=== PATIENT | male | born 1980 | race Caucasian/White ===

== ENCOUNTER 2018-08-15 23:21 | Inpatient (IN) ==
[2018-08-15] MEDS ORDERED: Acetaminophen 325 MG Tablet PO ONE (23:47)
--- NOTE | 2018-08-16 00:16 | XR ---
EXAM DATE: 08/16/2018 12:12 AM EST AGE/SEX: 38 years / Male INDICATIONS: Fever for one week. CLINICAL DATA: This is the patient's initial encounter. Patient reports that signs and symptoms have been present for 1 day and indicates a pain score of 0/10. MEDICAL/SURGICAL HISTORY: None. None. COMPARISON: No prior exams available for comparison. FINDINGS: A single AP view of the chest demonstrates the lungs to be symmetrically aerated without evidence of mass, infiltrate or effusion. The cardiomediastinal contours are unremarkable. Osseous structures a re intact. CONCLUSION: 1. Negative portable chest. Electronically signed by: Sebastien Rodriguez MD Board Certified Radiologist 08/16/2018 12:14 AM LINNEA T
[2018-08-16] MEDS: Sod Chloride 0.9% Inj 1,000 ML IV.SIG SCH ×4 (01:00→12:32)
[2018-08-16 01:09] LABS: Baso % (Auto) 0.2 % (0.0-2.0); Lymph # (Auto) 1.5 th/mm3 (1.0-4.8); Lymph % (Auto) 20.2 % (9.0-44.0); Mean Corpuscular HGB Conc 33.6 % (32.0-36.0); Mean Corpuscular Hemoglobin 26.2 pg (27.0-34.0); Mean Corpuscular Volume 77.9 fL (80.0-100.0); Mean Platelet Volume 8.3 fL (7.0-11.0); Mono # (Auto) 0.5 th/mm3 (0.0-0.9); Mono % (Auto) 7.1 % (0.0-8.0); Neut # (Auto) 5.4 th/mm3 (1.8-7.7); Neut % (Auto) 72.5 % (16.0-70.0); Platelet Count 109 th/mm3 (150-450); Red Blood Count 2.32 mil/mm3 (4.50-5.90); Red Cell Distribution Width 18.8 % (11.6-17.2); White Blood Count 7.4 th/mm3 (4.0-11.0)
[2018-08-16 01:12] LABS: Hematocrit 18.1 % (39.0-51.0); Hemoglobin 6.1 gm/dL (13.0-17.0)
[2018-08-16] MEDS ORDERED: Vancomycin Inj 1,000 MG in Sodium Chlor 0.9% Inj 250 ML IV.SIG ONE (01:17)
--- NOTE | 2018-08-16 01:23 | ED ---
HPI General Chief Complaint: Respiratory Symptoms Stated Complaint: vomiting Time Seen by Provider: 08/15/18 23:47 Source: patient Mode of arrival: ambulatory Limitations: no limitations History of Present Illness HPI Narrative: Patient with fever and cough with history of pneumonia reportedly from MRSA in the past when he was treated in [place] but signed out AGAINST MEDICAL ADVICE prior to completion of treatment. Patient with recent evaluation June 2018 for methadone abuse. Patient presents not feeling well over the past several days with cough congestion also mentions generalized abdominal pain no report of diarrhea no report of hematemesis coffee-ground emesis melena or hematochezia. Patient denies any substance use times 2 weeks patient states he used to inject heroin. MD complaint: Reports fever and weakness Onset (ago): day(s) Temperature Source: subjective Associated symptoms: Reports chills, myalgias, rhinorrhea, nasal congestion, cough, abdominal pain, nausea, vomiting and weight loss; Denies rigors, headache , sore throat, stiff neck, chest pain, shortness of breath, diarrhea, dysuria, rash, confusion and night sweats Relieving factors: nothing Exacerbating factors: nothing Treatments prior to arrival fever: Reports none Related Data Home Medications Medication Instructions Recorded Confirmed No Known Home Medications 07/21/18 08/15/18 Allergies Allergy/AdvReac Type Severity Reaction Status Date / Time No Known Allergies Allergy Verified 07/21/18 17:17 Review of Systems ROS: all other systems reviewed are negative PMFSH Medical History Medical History Hepatitis C (Acute) Surgical History Surgical History History of appendectomy (Acute) Social History Social History Substance History: Past History Smoking Status: Current every day smoker Tobacco Type: Cigarettes and Smokeless Tobacco How Often Do You Have a Drink Containing Alcohol: Never Recent Travel in [place] within the Last 8 Weeks: No Recent Out of Country Travel within the Last 8 Weeks: No Immunization History Tetanus Immunization: <5 Years Tetanus Immunization Year if Known: 2018 Exam Narrative Exam Narrative: GENERAL: Well-nourished, well-developed patient. Mildly ill- appearing male with fever 100.6 F mild increased respiratory rate of 22 increased heart rate of 118 blood pressure 104/54 SKIN: Focused skin assessment warm/dry. HEAD: Normocephalic. EYES: No scleral icterus. No injection or drainage. NECK: Supple, trachea midline. No JVD or lymphadenopathy. CARDIOVASCULAR: Increased regular rate and rhythm with 2/6 holosystolic murmur, no gallops or rubs. RESPIRATORY: Breath sounds equal bilaterally. No accessory muscle use. GASTROINTESTINAL: Abdomen soft, diffusely tender to palpation without guarding or rebound, nondistended. MUSCULOSKELETAL: No cyanosis, or edema. BACK: Nontender without obvious deformity. No CVA tenderness. Procedures Hemaprompt Stool Procedural Steps Taken: specimen placed in appropriate test area, developer placed on specimen and control areas and controls appropriately positive and negative Hemaprompt Stool Result: negative Course Initial Documented Vital Signs Temperature 100.6 F H 08/15/18 23:22 Pulse Rate 130 H 08/15/18 23:22 Respiratory Rate 18 08/15/18 23:22 Blood Pressure 103/54 L 08/15/18 23:22 Pulse Oximetry 98 08/15/18 23:22 Last Documented Vital Signs Temperature 100.6 F H 08/15/18 23:37 Pulse Rate 118 H 08/15/18 23:37 Respiratory Rate 22 08/15/18 23:37 Blood Pressure 104/54 L 08/15/18 23:37 Pulse Oximetry 100 08/15/18 23:37 Medical Decision Making MDM Narrative Medical decision making narrative: Patient with fever and cough with history of pneumonia reportedly from MRSA in the past when he was treated in [place] but signed out AGAINST MEDICAL ADVICE prior to completion of treatment. Patient with recent evaluation June 2018 for methadone abuse. Patient presents not feeling well over the past several days with cough congestion also mentions generalized abdominal pain no report of diarrhea no report of hematemesis coffee -ground emesis melena or hematochezia. Patient denies any substance use times 2 weeks patient states he used to inject heroin. IV access obtained specimens collected and sent for resulting; blood cultures obtained lactic acid obtained and presumptive IV antibiotics administered for sepsis possibly due to pneumonia endocarditis or intra-abdominal/pelvic source no obvious skin lesion or abscess findings or joint swelling patient has multiple scars consistent with IV drug abuse. Patient identified to have marked anemia hemoglobin of 6.1; rectal exam performed Hemoccult negative; patient ordered to receive 2 units packed cells with one on hold. Patient identified to have hyponatremia of 126 acute renal failure insufficiency BUN 51/ Cr 3.12 CT abdomen pelvis, urinalysis and urine drug screen pending Medical Screen Exam Complete: Yes Emergency Medical Condition: Yes Differential Diagnosis Differential Diagnosis: Fever, sepsis, pneumonia, endocarditis, cholecystitis, appendicitis, diverticulitis, cirrhosis, hepatitis, pancreatitis Medical Records Medical records reviewed: Yes I reviewed the patient's medical records. Lab Data Result diagrams: 08/16/18 00:40 08/16/18 00:40 Lab Results 08/16/18 08/16/18 08/16/18 Range/Units 00:40 00:40 00:40 WBC 7.4 (4.0-11.0) th/mm3 RBC 2.32 L (4.50-5.90) mil/mm3 Hgb 6.1 L* (13.0-17.0) gm/dL Hct 18.1 L* (39.0-51.0) % MCV 77.9 L (80.0-100.0) fL MCH 26.2 L (27.0-34.0) pg MCHC 33.6 (32.0-36.0) % RDW 18.8 H (11.6-17.2) % Plt Count 109 L (150-450) th/mm3 MPV 8.3 (7.0-11.0) fL Prelim Diff (Auto) Slide review pending Neut % (Auto) 72.5 H (16.0-70.0) % Lymph % (Auto) 20.2 (9.0-44.0) % Newton % (Auto) 7.1 (0.0-8.0) % Eos % (Auto) 0.0 (0.0-4.0) % Baso % (Auto) 0.2 (0.0-2.0) % Neut # (Auto) 5.4 (1.8-7.7) th/mm3 Lymph # (Auto) 1.5 (1.0-4.8) th/mm3 Newton # (Auto) 0.5 (0.0-0.9) th/mm3 Eos # (Auto) 0.0 (0.0-0.4) th/mm3 Baso # (Auto) 0.0 (0.0-0.2) th/mm3 WBC Differential . Diff Scan Auto diff confirmed Differential Comment . Platelet Estimate Normal (Normal) Platelet Morphology Normal (Normal) PT (9.8-11.6) sec INR Ratio APTT (23.4-31.7) sec Sodium 126 L (136-145) meq/L Potassium 4.4 (3.5-5.1) meq/L Chloride 95 L (98-107) meq/L Carbon Dioxide 21.1 (21.0-32.0) meq/L Anion Gap 10 (5-15) meq/L BUN 51 H (7-18) mg/dL Creatinine 3.21 H (0.60-1.30) mg/dL Estimated GFR 22 L (>89) mL/min Random Glucose 116 H (74-106) mg/dL Lactic Acid 1.3 (0.4-2.0) mmol/L Calcium 7.4 L* (8.5-10.1) mg/dL Calcium Adj for Albumin 8.6 (8.5-10.1) mg/dL Magnesium 1.7 (1.5-2.5) mg/dL Total Bilirubin 0.4 (0.2-1.0) mg/dL AST 50 H (15-37) U/L ALT 21 (12-78) U/L Alkaline Phosphatase 82 (45-117) U/L Troponin I Less than 0.02 L (0.02-0.05) ng/mL Total Protein 7.9 (6.4-8.2) g/dL Albumin 2.5 L (3.4-5.0) g/dL Lipase (73-393) U/L Blood Type Blood Type Recheck Antibody Screen MTS Gel Crossmatch 08/16/18 08/16/18 08/16/18 Range/Units 00:40 01:00 01:50 WBC (4.0-11.0) th/mm3 RBC (4.50-5.90) mil/mm3 Hgb (13.0-17.0) gm/dL Hct (39.0-51.0) % MCV (80.0-100.0) fL MCH (27.0-34.0) pg MCHC (32.0-36.0) % RDW (11.6-17.2) % Plt Count (150-450) th/mm3 MPV (7.0-11.0) fL Prelim Diff (Auto) Neut % (Auto) (16.0-70.0) % Lymph % (Auto) (9.0-44.0) % Newton % (Auto) (0.0-8.0) % Eos % (Auto) (0.0-4.0) % Baso % (Auto) (0.0-2.0) % Neut # (Auto) (1.8-7.7) th/mm3 Lymph # (Auto) (1.0-4.8) th/mm3 Newton # (Auto) (0.0-0.9) th/mm3 Eos # (Auto) (0.0-0.4) th/mm3 Baso # (Auto) (0.0-0.2) th/mm3 WBC Differential Diff Scan Differential Comment Platelet Estimate (Normal) Platelet Morphology (Normal) PT 11.2 (9.8-11.6) sec INR 1.1 Ratio APTT 26.9 (23.4-31.7) sec Sodium (136-145) meq/L Potassium (3.5-5.1) meq/L Chloride (98-107) meq/L Carbon Dioxide (21.0-32.0) meq/L Anion Gap (5-15) meq/L BUN (7-18) mg/dL Creatinine (0.60-1.30) mg/dL Estimated GFR (>89) mL/min Random Glucose (74-106) mg/dL Lactic Acid (0.4-2.0) mmol/L Calcium (8.5-10.1) mg/dL Calcium Adj for Albumin (8.5-10.1) mg/dL Magnesium (1.5-2.5) mg/dL Total Bilirubin (0.2-1.0) mg/dL AST (15-37) U/L ALT (12-78) U/L Alkaline Phosphatase (45-117) U/L Troponin I (0.02-0.05) ng/mL Total Protein (6.4-8.2) g/dL Albumin (3.4-5.0) g/dL Lipase 44 L (73-393) U/L Blood Type O Negative Blood Type Recheck Required Antibody Screen Negative MTS Gel Crossmatch See Detail Imaging Data Radiologist's impression: Chest X-Ray 08/15/18 23:47 CONCLUSION: 1. Negative portable chest. Discharge Plan Discharge Disposition Patient Disposition: ED Admit(ED Internal Use Only) Discharge Condition Condition: Fair Discharge Details Diagnosis: Sepsis, Endocarditis, Anemia, Intravenous drug abuse, Thrombocytopenia Physicians Team ED Provider: Balbina Jolly Primary Care Provider: Primary Care Katie Alvarado Rxs /Orders / Referrals /Forms Prescriptions: No Action No Known Home Medications RF: 0 Status ED Status: With Doctor
[2018-08-16 01:30] LABS: Alanine Aminotransferase 21 U/L (12-78); Albumin 2.5 g/dL (3.4-5.0); Alkaline Phosphatase 82 U/L (45-117); Anion Gap 10 meq/L (5-15); Aspartate Aminotransferase 50 U/L (15-37); Blood Urea Nitrogen 51 mg/dL (7-18); Calcium 7.4 mg/dL (8.5-10.1); Carbon Dioxide 21.1 meq/L (21.0-32.0); Chloride 95 meq/L (98-107); Glomerular Filtration Rate 22 mL/min (>89); Glucose,Random 116 mg/dL (74-106); Magnesium 1.7 mg/dL (1.5-2.5); Potassium 4.4 meq/L (3.5-5.1); Sodium 126 meq/L (136-145); Total Protein 7.9 g/dL (6.4-8.2)
[2018-08-16] MEDS ORDERED: Piperacil/Tazo 4.5 GM Premix 4.5 GM/100 ML BAG IV.SIG SCH (01:30)
[2018-08-16 01:49] LABS: Platelet Estimate Normal (Normal); Platelet Morphology Normal (Normal)
[2018-08-16 02:23] LABS: Activated Partial Thrombo Time 26.9 sec (23.4-31.7); INR 1.1 Ratio; Prothrombin Time 11.2 sec (9.8-11.6)
--- NOTE | 2018-08-16 03:27 | CT ---
EXAM DATE: 08/16/2018 2:47 AM EST AGE/SEX: 38 years / Male INDICATIONS: Diffuse abdominal pain. CLINICAL DATA: This is the patient's initial encounter. Patient reports that signs and symptoms have been present for 2 days and indicates a pain score of 6/10. MEDICAL/SURGICAL HISTORY: Hepatitis C. Appendectomy. RADIATION DOSE: 4.80 CTDI (mGy) COMPARISON: No prior exams available for comparison. TECHNIQUE: Multiple contiguous axial images were obtained through the abdomen. Images were obtained using multiple row detector helical technique. Using automated exposure control and adjustment of the mA and/or kV according to patient size, radiation dose was kept as low as reasonably achievable to o btain optimal diagnostic quality images. DICOM format image data is available electronically for rev iew and comparison. FINDINGS: LOWER LUNGS: Multiple bilateral pulmonary nodules with the largest in the left lung base measuring 2 .3 x 1.3 cm. Largest on the right is in the right middle lobe measuring 1.0 x 1.1 cm. Focal linear pa renchymal opacities in the anterior right middle lobe and left lung base. LIVER: Liver is enlarged but demonstrates uniform density without intrahepatic ductal dilatation. SPLEEN: Spleen is enlarged measuring up to 15.6 cm but demonstrates uniform density. PANCREAS: Grossly unremarkable. KIDNEYS: Kidneys are symmetrical in size without evidence for radiopaque renal calculi or hydronephr osis. No significant contour deforming renal abnormality. ADRENAL GLANDS: Unremarkable. AORTA: Wendy-aneurysmal. BOWEL/MESENTERY: The bowel loops are grossly unremarkable. The cecum and sigmoid colon have a kei l configuration. No significant free fluid or drainable fluid collections. No free air. ABDOMINAL WALL: Intact. BLADDER: Contours are smooth. REPRODUCTIVE: Grossly unremarkable. BONY STRUCTURES: Unremarkable. CONCLUSION: 1. Multiple bilateral pulmonary nodules in the visualized lung bases with the largest in the left satya ng base measuring 2.3 x 1.3 cm. These are concerning for septic emboli/infectious etiology in the sweetie ropriate clinical setting. Differential considerations include neoplasm/metastatic disease. 2. Hepatosplenomegaly consistent with patient's history of hepatitis C and probable portal hypertens ion. 3. No definite acute CT abnormality in the abdomen or pelvis. Electronically signed by: Sebastien Rodriguez MD Board Certified Radiologist 08/16/2018 3:25 AM EST
[2018-08-16] MEDS ORDERED: Bisacodyl 10 MG Supp RECTAL PRN (03:56)
[2018-08-16] MEDS ORDERED: Morphine Sulfate Inj 2 MG/ML Vial IV.PUSH PRN (03:56)
[2018-08-16] MEDS ORDERED: Vancomycin Consult Pharmacy OTHER PRN (03:56)
[2018-08-16] MEDS ORDERED: Acetaminophen 325 MG Tablet PO PRN (03:56)
--- NOTE | 2018-08-16 04:15 | P.HPIM ---
History of Present Illness Primary Care Physician: No Primary Care Physician History of Present Illness: This is a 38 year-old male w/ a PMH of IVDU, Hepatitis C and h/o Endocarditis who presented to the ER w/ c/o SOB x1 month. States he was seen in a Hospital in [place] when symptoms started, was diagnosed w/ Endocarditis and had PICC line placed for intermission coordinator antibiotics, however pt LEFT AMA prior to completing treatment. +ongoing IVDU, but reports last use 1 month ago. +subjective fever/chills and intermittent cough in addition to chest pain. Chest pain is substernal, 8/10, worse w/ inspiration, non-radiating. On arrival, BP 103/54, HR 130, O2 sat 98% on RA, Temp 100.6. Hemoglobin 6.1. Platelets 109. Hemoccult negative. INR 1.1. Creatinine 3.21 , previously 1.27 on 07/21/2018. Troponin negative. CXR negative. CT Abd/ Pelvis w/ multiple bilateral pulmonary nodules concerning for septic emboli/ infectious etiology. S/p Vanc/Zosyn in ER. Diagnosis (1) Sepsis: (2) Endocarditis: (3) Anemia: (4) Septic embolism: (5) IVDU (intravenous drug user): (6) JOSSUE (acute kidney injury): Review of Systems PAST FAMILY HISTORY: Reviewed. No h/o DM or CAD Review of Systems: all other systems reviewed are negative [facility] Medical History Medical History Hepatitis C (Acute) Surgical History Surgical History History of appendectomy (Acute) Social History Social History Substance History: Past History Smoking Status: Current every day smoker Tobacco Type: Cigarettes and Smokeless Tobacco How Often Do You Have a Drink Containing Alcohol: Never Recent Travel in [facility] within the Last 8 Weeks: No Recent Out of Country Travel within the Last 8 Weeks: No Immunization History Tetanus Immunization: <5 Years Tetanus Immunization Year if Known: 2017 Medications and Allergies Allergies Allergy/AdvReac Type Severity Reaction Status Date / Time No Known Allergies Allergy Verified 07/21/18 17:17 Home Medications Medication Instructions Recorded Confirmed Type No Known Home Medications 07/21/18 08/15/18 History Active Medications: Active Medications Acetaminophen (Tylenol) 650 mg PO Q4H PRN PRN Reason: Temp > 100.4 Al Hydroxide/Mg Hydroxide (Milk Of Magnesia Liq) 30 ml PO Q12H PRN PRN Reason: Mild Constipation Albuterol (Duoneb Neb (Prn)) 1 ampul NEB Q4HR NEB PRN PRN Reason: SOB/WHEEZING Bisacodyl (Dulcolax Supp) 10 mg RECTAL DAILY PRN PRN Reason: SEVERE CONSITIPATION Piperacillin/Tazobactam/Dextrose (Zosyn 4.5 Gm Premix) 4.5 gm in 100 mls @ 200 mls/hr IV.SIG ONCE ALEK Last Infusion: 08/16/18 02:10 Dose: Infused Cefepime HCl 1,000 mg/ Sodium (Chloride) 100 mls @ 200 mls/hr IV.SIG Q12H ALEK Sodium Chloride (Ns Inj) 1,000 mls @ 100 mls/hr IV.CONT .Q10H ALEK Lactulose (Lactulose Liq) 30 ml PO DAILY PRN PRN Reason: SEVERE CONSITIPATION Morphine Sulfate (Morphine Inj) 2 mg IV.PUSH Q4H PRN PRN Reason: PAIN SCALE 6 TO 10 Ondansetron HCl (Zofran Inj) 4 mg IV.PUSH Q6H PRN PRN Reason: NAUSEA OR VOMITING Pharmacy Profile Note (Vancomycin Consult Pharmacy) 1 each OTHER UNSCH PRN PRN Reason: Pharmacy to dose Senna/Docusate Sodium (Irish-Colace) 1 tab PO BID [facility] Sennosides (Senokot) 17.2 mg PO Q12H PRN PRN Reason: Moderate Constipation Sodium Chloride (Ns Flush) 2 ml IV.FLUSH BID ALEK Sodium Chloride (Ns Flush) 2 ml IV.FLUSH PRN PRN PRN Reason: FLUSH AFTER USING IV ACCESS Physical Exam Vital signs: Vital Signs 08/15/18 23:22 08/15/18 23:37 Temperature 100.6 F H 100.6 F H Pulse Rate 130 H 118 H Respiratory Rate 18 22 Blood Pressure 103/54 L 104/54 L Pulse Oximetry 98 100 Intake & Output 08/15/18 08/15/18 08/16/18 06:59 18:59 06:59 Intake Total 2100 / 2099 Balance 2099 Weight 68.039 kg Intake: IV 2099 Zosyn 4.5 GM Premix 4.5 gm In 100 / 100 100 ml @ 200 mls/hr IV.SIG ONCE ALEK Rx#:[id number] NS Inj 1,000 ML @ 2000 mls/hr 1999 IV.SIG Q30M ALEK Rx#:[id number] Narrative: PE: GENERAL: Middle-aged white male in no acute distress, unkempt, foul-smelling SKIN: Focused skin assessment warm and dry. HEENT: PERRLA, EOMI. No scleral icterus or conjunctival pallor. No lid lag or facial droop. CARDIOVASCULAR: Regular rate and rhythm. No obvious murmurs to auscultation. No chest tenderness to palpation. RESPIRATORY: No obvious rhonchi or wheezing. Clear to auscultation. Breath sounds equal bilaterally. GASTROINTESTINAL: Abdomen soft, non-tender, nondistended. BS normal. MUSCULOSKELETAL: Extremities without clubbing, cyanosis, or edema. No obvious deformities. NEUROLOGICAL: Awake, alert and oriented x4. No focal neurologic deficits. Moving both upper and lower extremities spontaneously. PSYCHIATRIC: Appropriate mood and affect. Insight and judgment normal. Results Labs CBC & Chem 7: 08/16/18 00:40 08/16/18 00:40 Imaging Impressions Chest X-Ray 08/15/18 23:47 CONCLUSION: 1. Negative portable chest. Abdomen/Pelvis CT 08/16/18 01:17 CONCLUSION: 1. Multiple bilateral pulmonary nodules in the visualized lung bases with the largest in the left lung base measuring 2.3 x 1.3 cm. These are concerning for septic emboli/infectious etiology in the appropriate clinical setting. Differential considerations include neoplasm/metastatic disease. 2. Hepatosplenomegaly consistent with patient's history of hepatitis C and probable portal hypertension. 3. No definite acute CT abnormality in the abdomen or pelvis. Caprini VTE Risk Assessment Caprini VTE Risk Assessment: No/Low Risk (score <= 1) Caprini Risk Assessment Model: Point Value = 1 Point Value = 2 Point Value = 3 Point Value = 5 Age 41-60 Minor surgery BMI > 25 kg/m2 Swollen legs Varicose veins or History of unexplained or recurrent spontaneous Oral contraceptives or hormone replacement Sepsis (< 1 month) Serious lung disease, including pneumonia (< 1 month) Abnormal pulmonary function Acute myocardial infarction Congestive heart failure (< 1 month) History of inflammatory bowel disease Medical patient at bed rest Age 61-74 Arthroscopic surgery Major open surgery (> 45 min) Laparoscopic surgery (> 45 min) Malignancy Confined to bed (> 72 hours) Immobilizing plaster cast Central venous access Age >= 75 History of VTE Family history of VTE Factor V Leiden Prothrombin [id number] Lupus anticoagulant Anticardiolipin antibodies Elevated serum homocysteine Heparin-induced thrombocytopenia Other congenital or acquired thrombophilia Stroke (< 1 month) Elective arthroplasty Hip, pelvis, or leg fracture Acute spinal cord injury (< 1 month) Prophylaxis Regimen: Total Risk Factor Score Risk Level Prophylaxis Regimen 0-1 Low Early ambulation 2 Moderate Order ONE of the following: *Sequential Compression Device (SCD) *Heparin 5000 units SQ BID 3-4 Higher Order ONE of the following medications: *Heparin 5000 units SQ TID *Enoxaparin/Lovenox 40 mg SQ daily (WT < 150 kg, CrCl > 30 mL/min) *Enoxaparin/Lovenox 30 mg SQ daily (WT < 150 kg, CrCl > 10-29 mL/min) *Enoxaparin/Lovenox 30 mg SQ BID (WT < 150 kg, CrCl > 30 mL/min) AND/OR *Sequential Compression Device (SCD) 5 or more Highest Order ONE of the following medications: *Heparin 5000 units SQ TID (Preferred with Epidurals) *Enoxaparin/Lovenox 40 mg SQ daily (WT < 150 kg, CrCl > 30 mL/min) *Enoxaparin/Lovenox 30 mg SQ daily (WT < 150 kg, CrCl > 10-29 mL/min) *Enoxaparin/Lovenox 30 mg SQ BID (WT < 150 kg, CrCl > 30 mL/min) AND *Sequential Compression Device (SCD) Assessment and Plan (1) Sepsis: Code(s): A41.9 - Sepsis, unspecified organism Status: Acute (2) Endocarditis: Code(s): I38 - Endocarditis, valve unspecified Status: Acute (3) Anemia: Code(s): D64.9 - Anemia, unspecified Status: Acute (4) Septic embolism: Code(s): I76 - Septic arterial embolism Status: Acute (5) IVDU (intravenous drug user): Code(s): F19.90 - Other psychoactive substance use, unspecified, uncomplicated Status: Acute (6) JOSSUE (acute kidney injury): Code(s): N17.9 - Acute kidney failure, unspecified Status: Acute Plan A/P: 1. Endocarditis: h/o Endocarditis approx 1mo ago in [place], was to receive IV Abx via PICC, however LEFT AMA prior to treatment, +IVDU. Check Echo to eval for vegetations, follow up blood cultures. 2. Chest Pain: likely secondary to above, initial trop negative, check serial cardiac enzymes 3. Septic Emboli: secondary to IVDU w/ endocarditis, CT Abd/Pelvis w/ multiple lung nodules bilaterally concerning for septic emboli/infectious etiology. Will consult ID for further eval/recommendations, continue w/ broad spectrum antibiotics, follow up cultures. 4. JOSSUE: Creatinine 3.21, previously 1.27 on 07/21/18, IVF for hydration, monitor I/O, repeat labs in am. 5. Anemia: Hgb 6.1, Hemoccult negative, no previous labs for comparison, 2u pRBC ordered in ER, pending transfusion. 6. IVDU: +IVDU w/ Methadone, reports last use 1 month ago 7. DVT Prophylaxis: SCD/Teds 8. Social work for d/c planning as needed 9. Case discussed w/ ER physician at [facility], labs/records/imaging reviewed by me. _ (1) Anemia Qualifiers: Anemia type: iron deficiency Bone marrow failure anemia type: Chronic kidney disease stage: Folate deficiency anemia type: Hemolytic anemia type: Iron deficiency anemia type: Other causes of anemia: Vitamin B12 deficiency anemia type: (2) Endocarditis Qualifiers: Chronicity: unspecified Endocarditis type: unspecified Infective endocarditis organism: Qualified Code(s): I38 - Endocarditis, valve unspecified (3) Sepsis Qualifiers: Sepsis type: sepsis due to unspecified organism Qualified Code(s): A41.9 - Sepsis, unspecified organism
[2018-08-16] MEDS: Sod Chloride 0.9% Inj 1,000 ML IV.CONT SCH ×3 (06:23→13:34)
[2018-08-16] MEDS ORDERED: Senna/Docusate Sodium 8.6/50 MG Tablet PO SCH (09:00)
--- NOTE | 2018-08-16 10:10 | P.PNSTU ---
Subjective - Remarks 38 y/o male w/ h/o IVDU, Hep C, and endocarditis on HD 1 who was admitted for sepsis and possible septic emboli 2/2 endocarditis. Pt arrived to ED complaining of SOB x 1 month. Pt reports he was being treated up in [place] for endocarditis for 1 month with IV antibiotics via PICC line, however he left AMA after his girlfriend told him to come down to [facility] to be with her and get treated. He left with the PICC line in place. When he arrived in [facility] his girlfriend took his rent money and left and the patient had to sleep on the streets for 2 days. His symptoms worsened and he cam to the ED. In the ED he had SOB and substernal chest pain. Vitals were BP 103/54, HR 130, temp 100.6; Labs in ED revealed Hgb 6.1, Cr 1.27. CT abd/pelvis revealed multiple bilateral pulmonary nodules concerning for septic emboli, but did not have any other acute processes. He was given vanc/zozyn and was admitted to the floor. Today he complains of chest pain and shortness of breath which has worsened since yesterday, but he says it is manageable. Reports fevers and chills but denies any n/v/d, headache, and diaphoresis. Tolerating food well and no issues with bowels or bladder. Objective Vital Signs: Vital Signs 08/15/18 23:22 08/15/18 23:37 08/16/18 04:00 Temperature 100.6 F H 100.6 F H Pulse Rate 130 H 118 H 90 Respiratory Rate 18 22 18 Blood Pressure 103/54 L 104/54 L 90/52 L Pulse Oximetry 98 100 100 08/16/18 04:28 08/16/18 04:44 08/16/18 05:26 Temperature 98.5 F 99.3 F 99.6 F Pulse Rate 90 92 H 92 H Respiratory Rate 16 17 17 Blood Pressure 90/52 L 92/52 L 95/53 L Pulse Oximetry 98 08/16/18 05:40 08/16/18 06:00 08/16/18 06:51 Temperature 98.7 F Pulse Rate 98 H 97 H Respiratory Rate 18 Blood Pressure 89/51 L 92/46 L Pulse Oximetry 100 08/16/18 08:00 08/16/18 09:00 Temperature 98.9 F Pulse Rate 96 H 98 H Respiratory Rate 20 Blood Pressure 95/46 L Pulse Oximetry 95 Intake & Output 08/15/18 08/16/18 08/16/18 18:59 06:59 18:59 Intake Total 2590 / 2590 Balance 2590 / 2590 Weight 68.8 kg Intake: IV 2350 / 2350 Zosyn 4.5 GM Premix 4.5 gm In 100 / 100 100 ml @ 200 mls/hr IV.SIG ONCE [facility] Rx#:[id number] NS Inj 1,000 ML @ 2000 mls/hr 1999 / 1999 IV.SIG Q30M [facility] Rx#:[id number] Vancomycin Inj 1,000 MG In NS 250 / 250 Inj 250 ML @ 250 mls/hr IV.SIG ONCE ONE Rx#:[id number] Oral 240 / 240 Intake (Blood Product) Amt 0 / 0 Rbc As-3 Leukoreduced Unit 0 / 0 [id number] Other: # Voids 2 Date of Last Bowel Movement 08/15/18 08/15/18 Weight On Admission 68.8 kg Result Diagrams: 08/16/18 00:40 08/16/18 00:40 Imaging: Impressions Chest X-Ray 08/15/18 23:47 CONCLUSION: 1. Negative portable chest. Abdomen/Pelvis CT 08/16/18 01:17 CONCLUSION: 1. Multiple bilateral pulmonary nodules in the visualized lung bases with the largest in the left lung base measuring 2.3 x 1.3 cm. These are concerning for septic emboli/infectious etiology in the appropriate clinical setting. Differential considerations include neoplasm/metastatic disease. 2. Hepatosplenomegaly consistent with patient's history of hepatitis C and probable portal hypertension. 3. No definite acute CT abnormality in the abdomen or pelvis. Medications and IVs: Active Medications Acetaminophen (Tylenol) 650 mg PO Q4H PRN PRN Reason: Temp > 100.4 Al Hydroxide/Mg Hydroxide (Milk Of Magnesia Liq) 30 ml PO Q12H PRN PRN Reason: Mild Constipation Albuterol (Duoneb Neb (Prn)) 1 ampul NEB Q4HR NEB PRN PRN Reason: SOB/WHEEZING Bisacodyl (Dulcolax Supp) 10 mg RECTAL DAILY PRN PRN Reason: SEVERE CONSITIPATION Piperacillin/Tazobactam/Dextrose (Zosyn 4.5 Gm Premix) 4.5 gm in 100 mls @ 200 mls/hr IV.SIG ONCE [facility] Last Infusion: 08/16/18 02:10 Dose: Infused Cefepime HCl 1,000 mg/ Sodium (Chloride) 100 mls @ 200 mls/hr IV.SIG Q12H [facility] Last Admin: 08/16/18 08:21 Dose: 200 mls/hr Sodium Chloride (Ns Inj) 1,000 mls @ 100 mls/hr IV.CONT .Q10H [facility] Last Admin: 08/16/18 06:23 Dose: 100 mls/hr Lactulose (Lactulose Liq) 30 ml PO DAILY PRN PRN Reason: SEVERE CONSITIPATION Morphine Sulfate (Morphine Inj) 2 mg IV.PUSH Q4H PRN PRN Reason: PAIN SCALE 6 TO 10 Ondansetron HCl (Zofran Inj) 4 mg IV.PUSH Q6H PRN PRN Reason: NAUSEA OR VOMITING Pharmacy Profile Note (Vancomycin Consult Pharmacy) 1 each OTHER UNSCH PRN PRN Reason: Pharmacy to dose Senna/Docusate Sodium (Irish-Colace) 1 tab PO BID [facility] Last Admin: 08/16/18 08:22 Dose: Not Given Sennosides (Senokot) 17.2 mg PO Q12H PRN PRN Reason: Moderate Constipation Sodium Chloride (Ns Flush) 2 ml IV.FLUSH BID [facility] Last Admin: 08/16/18 08:22 Dose: Not Given Sodium Chloride (Ns Flush) 2 ml IV.FLUSH PRN PRN PRN Reason: FLUSH AFTER USING IV ACCESS Objective Remarks: GENERAL: Thin, mildly ill-apeparing male in no acute distress SKIN: Warm and dry. multiple pick lesions on bilateral arms and face HEAD: Atraumatic. Normocephalic. EYES: Pupils equal and round. No scleral icterus. No injection or drainage. ENT: Mucous membranes pink and moist. NECK: Trachea midline. No JVD. CARDIOVASCULAR: Regular rate and rhythm. holosystolic murmur heard best left of the sternum. RESPIRATORY: No accessory muscle use. Clear to auscultation. Breath sounds equal bilaterally. GASTROINTESTINAL: Soft abdomen that is mildy tender to palpation diffusely. no rebound or guarding MUSCULOSKELETAL: Extremities without clubbing, cyanosis, or edema. No obvious deformities. NEUROLOGICAL: Awake and alert. No obvious cranial nerve deficits. Motor grossly within normal limits. Five out of 5 muscle strength in the arms and legs. Normal speech. PSYCHIATRIC: Appropriate mood and affect; insight and judgment normal. Assessment and Plan Assessment and Plan: Pt is a 38 y/o male w/ h/o IVDu, hep C, and endocarditis on HD 1 admitted for possible endocarditis. Multiple bilateral lung nodules found concerning for septic emboli. 1. ?Endocarditis - Previously treated for a reported 1.5 months in [place] with IV Abx before leaving POOL - Arrived to ED with SOB and CP x 1 month, worsened last 2-3 days after sleeping on streets - Patient had lowgrade temp, hypotensive, and tachy on arrival to ED - CBC without leukocytosis, negative troponin - CT Abd/pel revealed multiple bilateral lung nodules which are concerning for septic emboli/infectious etiology - Today patient reports symptoms are grossly unchanged, possibly worse - Currently managed with IV Zozyn - Blood cultures and 2D echo pending - ID has been consulted - Will continue IV Abx and reassess with ID and echo/culture results 2. Hypotension - BP has been consistently low, however today has been SBP 80s - Dehydration vs septic shock - Given 1 unit of blood and 1 L of NS - WIll reassess, if sitll low will give 1 more L of NS before considering pressors and transfer to ICU - Will repeat Lactic Acid - Will closely monitor 2. Acute Kidney Injury - In ED CMP revealed Cr 3.21 and BUN 1.27 - Baseline as of 1 month ago is 1.27 - IVF started and I/O's monitored - BMP ordered for later today 3. Hyponatremia - In ED CMP revealed Na of 122 - Asymptomatic, most likely due to poor oral intake - Will see if sodium is corrected with IVF resuscitation for JOSSUE 4. Anemia - In ED CBC revealed Hgb of 6.1 - 3 units of blood were ordered and one has been given - Will order H&H to follow after next unit is given 5. IVDU - Reports last use 1 month ago, but history may be unreliable - Will monitor for withdraw symptoms 6. DVT prophylaxis - Low risk - SCDS/Teds Dispo: Hypotension possible sign of septic shock, might need transfer to ICU; Awaiting blood cultures, echo reuslts, and ID recommendations. Will need to arrange safe discharge once ready
[2018-08-16 10:40] VITALS: RESP 18
--- NOTE | 2018-08-16 10:50 | P.PNIM ---
Subjective Interval history: Follow-up for IV drug use, endocarditis. Patient is currently resting in bed. Denies any acute concerns. No fever chills. He exhibits negative attitudes regarding all the questions everyone is asking including nurses and doctors. Physical Exam Vital signs: Vital Signs 08/15/18 23:22 08/15/18 23:37 08/16/18 04:00 Temperature 100.6 F H 100.6 F H Pulse Rate 130 H 118 H 90 Respiratory Rate 18 22 18 Blood Pressure 103/54 L 104/54 L 90/52 L Pulse Oximetry 98 100 100 08/16/18 04:28 08/16/18 04:44 08/16/18 05:26 Temperature 98.5 F 99.3 F 99.6 F Pulse Rate 90 92 H 92 H Respiratory Rate 16 17 17 Blood Pressure 90/52 L 92/52 L 95/53 L Pulse Oximetry 98 08/16/18 05:40 08/16/18 06:00 08/16/18 06:51 Temperature 98.7 F Pulse Rate 98 H 97 H Respiratory Rate 18 Blood Pressure 89/51 L 92/46 L Pulse Oximetry 100 08/16/18 08:00 08/16/18 09:00 08/16/18 10:39 Temperature 98.9 F 99.5 F Pulse Rate 96 H 98 H 86 Respiratory Rate 20 18 Blood Pressure 95/46 L 83/41 L Pulse Oximetry 95 96 Intake & Output 08/15/18 08/16/18 08/16/18 18:59 06:59 18:59 Intake Total 2590 / 2590 100 / 100 Balance 2590 / 2590 100 / 100 Weight 68.8 kg Intake: IV 2350 / 2350 100 / 100 Maxipime Inj 1,000 MG In NS Inj 100 / 100 100 ML @ 200 mls/hr IV.SIG Q12H [facility] Rx#:[id number] Zosyn 4.5 GM Premix 4.5 gm In 100 / 100 100 ml @ 200 mls/hr IV.SIG ONCE [facility] Rx#:[id number] NS Inj 1,000 ML @ 2000 mls/hr 1999 IV.SIG Q30M [facility] Rx#:[id number] Vancomycin Inj 1,000 MG In NS 250 / 250 Inj 250 ML @ 250 mls/hr IV.SIG ONCE ONE Rx#:[id number] Oral 240 / 240 Intake (Blood Product) Amt 0 / 0 0 / 0 Rbc As-3 Leukoreduced Unit 0 / 0 [id number] Rbc As-3 Leukoreduced Unit 0 / 0 [id number] Other: # Voids 2 Date of Last Bowel Movement 08/15/18 08/15/18 Weight On Admission 68.8 kg Narrative: GENERAL: Alert, NAD. SKIN: Warm and dry. HEAD: Normocephalic. EYES: No scleral icterus. No injection or drainage. NECK: Supple, trachea midline. No JVD or lymphadenopathy. CARDIOVASCULAR: Regular rate and rhythm without murmurs, gallops, or rubs. RESPIRATORY: Breath sounds equal bilaterally. No accessory muscle use. GASTROINTESTINAL: Abdomen soft, non-tender, nondistended. MUSCULOSKELETAL: No cyanosis, or edema. BACK: Nontender without obvious deformity. No CVA tenderness. Results Labs CBC & Chem 7: 08/16/18 00:40 08/16/18 00:40 Labs: Microbiology 08/16/18 00:18 Nasal Wash Influenza Types A,B Antigen - Final Negative for FLU A and B antigen Infection due to influenza A or B cannot be ruled out since the antigen present in the sample may be below the detection limit of the test. Imaging Imaging: Impressions Chest X-Ray 08/15/18 23:47 CONCLUSION: 1. Negative portable chest. Abdomen/Pelvis CT 08/16/18 01:17 CONCLUSION: 1. Multiple bilateral pulmonary nodules in the visualized lung bases with the largest in the left lung base measuring 2.3 x 1.3 cm. These are concerning for septic emboli/infectious etiology in the appropriate clinical setting. Differential considerations include neoplasm/metastatic disease. 2. Hepatosplenomegaly consistent with patient's history of hepatitis C and probable portal hypertension. 3. No definite acute CT abnormality in the abdomen or pelvis. Assessment and Plan (1) Sepsis: Code(s): A41.9 - Sepsis, unspecified organism Status: Acute (2) Endocarditis: Code(s): I38 - Endocarditis, valve unspecified Status: Acute (3) Anemia: Code(s): D64.9 - Anemia, unspecified Status: Acute (4) Septic embolism: Code(s): I76 - Septic arterial embolism Status: Acute (5) IVDU (intravenous drug user): Code(s): F19.90 - Other psychoactive substance use, unspecified, uncomplicated Status: Acute (6) JOSSUE (acute kidney injury): Code(s): N17.9 - Acute kidney failure, unspecified Status: Acute Plan This is a 38 year-old male w/ a PMH of IVDU, Hepatitis C and h/o Endocarditis who presented to the ER w/ c/o SOB x1 month. 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 On arrival, BP 103/54, HR 130, O2 sat 98% on RA, Temp 100.6. Hemoglobin 6.1. Platelets 109. Hemoccult negative. INR 1.1. Creatinine 3.21, previously 1.27 on 07/21/2018. Sepsis (Fever 100.6, Tachycardia 130, Tachypnea 22, suspected infection Endocarditis) Probable endocarditis -Infectious disease consulted. Echocardiogram pending. Blood cultures pending. Currently on vancomycin and Cefepime empirically. Hypotension -BP in the 80s systolic. Asymptomatic. -Currently receiving 2nd unit of PRBCs. -Will provide 2L of NS bolus. If no improvement of BP, we will consider transferring him to ICU. -Check lactic acid sepsis protocol -BMP, H&H later this afternoon. Acute kidney injury -Creatinine 3.21. In 06/2018, Cr was 1.27. -Continue PRBCs, NS administration. Check BMP this afternoon. Anemia -Etiology undetermined currently. Possibly due to chronic inflammation -Total 3 units ordered. Currently receiving 2nd unit. Total critical care time spent over 35 minutes. Full code. SCDs. Later in the afternoon today 08/16/2018, patient expressed desire to go out of the floor and smoke. I came to check on patient multiple times during the day since his BP was low. Our goal was to continue fluid and finish PRBC administration and then check H&H as well as lactic acid level. If BP remained low, I informed patient that, I would transfer him to ICU. Patient has remained asymptomatic from hypotension. He was adamant about going outside for a cig. Floor nurse manager cardiac and I were in the room and informed patient that we just cannot allow him to get off the floor or off hospital property to let him go to smoke, he decided to leave against medical advice. I have explained that his clinical condition is very serious, we are still working him up for probable endocarditis and likely sepsis scenario and the danger of going against medical advice include loss of limb, life. He verbalized understanding and still decided to leave AMA. Patient Tony Stein has decided to leave the hospital against medical advice. This patient has the capacity to refuse care and understands the risks of leaving, including permanent disability and/or , and has had an opportunity to ask questions about his/her condition. The patient has been informed that he may return for care at any time to the ED. Discharge patient to home Condition on discharge: Serious. Patient is asymptomatic from low BP and alert, oriented x 3 and understands the gravity of his decision. Regular Diet as tolerated Ad Divya activity Rx written: None. Follow-up with primary care physician as needed. Progress Note: Quality VTE Deep Vein Thrombosis/Pulmonary Embolism Present on Admission: No _ (1) Anemia Qualifiers: Anemia type: iron deficiency Bone marrow failure anemia type: Chronic kidney disease stage: Folate deficiency anemia type: Hemolytic anemia type: Iron deficiency anemia type: Other causes of anemia: Vitamin B12 deficiency anemia type: (2) Endocarditis Qualifiers: Chronicity: unspecified Endocarditis type: unspecified Infective endocarditis organism: Qualified Code(s): I38 - Endocarditis, valve unspecified (3) Sepsis Qualifiers: Sepsis type: sepsis due to unspecified organism Qualified Code(s): A41.9 - Sepsis, unspecified organism
[2018-08-16 13:41] VITALS: BP 80/52; PULSE 74; TEMP 98.2; O2SAT 97
--- NOTE | 2018-08-16 14:01 | MB ---
cc: Cesar Gomez MD DATE: 08/16/2018 REQUESTING PHYSICIAN: Samantha Fofana MD. REASON: IVDU, septic emboli. HISTORY OF PRESENT ILLNESS: This is a 38-year-old white male with known IV drug use. The patient presented to the emergency department yesterday evening with a fever, cough, and vomiting. He was recently admitted to the hospital in [place] and diagnosed with endocarditis. He tells me that he was in the hospital for 2 months and that he left against medical advice about a month ago. He was being treated for endocarditis. He states that the doctor suggested surgery while he was in the hospital. When asked which valves were involved, he mentioned all of his valves. On presentation here, his temperature was 100.6. His estimated GFR was 22. The patient reports to me that he last used IV drugs about a week ago. He reports using heroin. The patient appears withdrawn and only answers questions that I ask. The patient appears somewhat somnolent and withdrawn. He is currently receiving blood transfusion. His hemoglobin was 6.1 early today. PAST MEDICAL HISTORY: Hepatitis C, history of appendectomy, IV drug abuse, endocarditis. ALLERGIES: NO KNOWN DRUG ALLERGIES. MEDICATIONS: 1. Cefepime. 2. Vancomycin. 3. Piperacillin/tazobactam 4. Vancomycin, dose was given earlier today. SOCIAL HISTORY: Positive tobacco use. No alcohol. Positive IV drug use. FAMILY HISTORY: Noncontributory. REVIEW OF SYSTEMS: Positives mentioned in history of present illness. The patient also reports having chills and shortness of breath. PHYSICAL EXAMINATION: GENERAL: This is a thin male who is in no acute distress. He is awake, although somnolent. VITAL SIGNS: Temperature 97.7, BP 83/42, respirations 18, heart rate 83. HEENT: Head is atraumatic. Extraocular movements are grossly intact. Pupils reactive to light, without icterus. Oropharynx: Moist mucosa. No visible lesions. NECK: Supple without adenopathy or swelling. LUNGS: Slight decreased breath sounds. No rhonchi. HEART: Regular S1, S2 with a 3/6 systolic ejection murmur at the left sternal border. ABDOMEN: Bowel sounds present, soft, no tenderness appreciated. No masses palpable. RECTAL: Not performed. EXTREMITIES: No clubbing, cyanosis, or edema. SKIN: No diffuse rash. Multiple tattoos which cover most of the upper extremities. NEUROLOGIC: No gross focal findings. PSYCHIATRIC: Patient is calm. LABORATORY DATA: WBC 7.4, platelets 109, hemoglobin 6.1, 72% neutrophils, 20% lymphocytes, 7% monocytes. Creatinine 3.21, estimated GFR 22. AST 50, ALT 21. Sodium 126. Blood culture pending. IMPRESSION: 1. The patient with known endocarditis and recently received IV antibiotics, but discontinued treatment and signed out against medical advice from the hospital in [place]. 2. Acute kidney disease. 3. Intravenous drug abuse. 4. Septic pulmonary embolism related to endocarditis. 5. Anemia. 6. Thrombocytopenia. RECOMMENDATIONS: 1. Continue vancomycin IV. 2. Continue piperacillin/tazobactam. 3. Request medical records from the [facility] in [place] where the patient was receiving antibiotic treatment for endocarditis. 4. Monitor blood cultures. 5. Monitor kidney function. 6. Follow 2-D echocardiogram, which has been ordered. 7. Monitor the patient's clinical response to antibiotic treatment. Thank you for this consultation. The patient's progress will be monitored and antibiotics will be adjusted as necessary and further recommendations will be given upon followup. MD STEVEN Moore/ts , 01:04 PM , 01:17 PM
[2018-08-16] MEDS ORDERED: Sod Chloride 0.9% Inj 1,000 ML IV.CONT SCH (14:59)
[2018-08-16] MEDS ORDERED: Piperacil/Tazo 2.25 GM Premix 2.25 GM/50 ML PIGGYBACK IV.SIG SCH (15:00)
== END 2018-08-16 15:58 | disposition left against medical advice (07) | DRG 871 ==
LOC: NEPC 23:21 → NEDA 08-16 04:03 → N04 08-16 05:00
PROVIDERS: ADMIT Hospitalist; ATTEND Hospitalist
DX: R91.8 Other nonspecific abnormal finding of lung field; E87.1 Hypo-osmolality and hyponatremia; F19.10 Other psychoactive substance abuse, uncomplicated; R16.2 Hepatomegaly with splenomegaly, not elsewhere classified; Z90.49 Acquired absence of other specified parts of digestive tract; F17.210 Nicotine dependence, cigarettes, uncomplicated; D64.9 Anemia, unspecified; I95.9 Hypotension, unspecified; B19.20 Unspecified viral hepatitis C without hepatic coma; I33.0 Acute and subacute infective endocarditis; Z87.01 Personal history of pneumonia (recurrent); I26.90 Septic pulmonary embolism without acute cor pulmonale; Z86.14 Personal history of Methicillin resistant Staphylococcus aureus infection; I76 Septic arterial embolism; D69.6 Thrombocytopenia, unspecified; R00.0 Tachycardia, unspecified; N17.9 Acute kidney failure, unspecified; K76.6 Portal hypertension; A41.50 Gram-negative sepsis, unspecified
CPT/HCPCS: 36430; 71010; 71045; 74176; 80053; 83605; 83690; 83735; 84484; 85025; 85610; 85730; 86403; 86850; 86900; 86901; 86923; 87040; 87186; 87205; 87275; 87276; 87804; 90765; 90766; 90767; 96365; 96366; 96367; 99285; J0692; J2543; J3370; J7030; J7050; P9016